=== PATIENT | female | born 1995 | race Caucasian/White ===

== ENCOUNTER 2019-10-25 20:34 | Emergency (ER) | payer MEDICAID ==
[~2019-10-25] VITALS: Ht 160 cm; Wt 47.3 kg
[2019-10-25] MEDS ORDERED: ONDANSETRON ODT 8 MG PO ONE (21:00)
[2019-10-25] MEDS ORDERED: ONDANSETRON ODT 4 MG ONE (21:00)
[2019-10-25] MEDS ORDERED: ONDANSETRON ODT 8 MG ONE (21:01)
[2019-10-25 21:36] LABS: MEAN CORPUSCULAR HEMOGLOBIN 31.2 pg (27.0-34.8); MEAN CORPUSCULAR VOLUME 94.5 fL (80-100); MEAN PLATELET VOLUME 9.2 fL (7.4-10.4); PLATELET COUNT 250 x10^3/uL (130-400); RED BLOOD COUNT 4.95 x10^6/uL (3.82-5.3); RED CELL DISTRIBUTION WIDTH 12.8 % (9.6-15.2)
[2019-10-25 21:49] LABS: ALBUMIN 3.8 g/dL (3.4-5.0); ANION GAP 5 mmol/L (5-15); CALCIUM 9.1 mg/dL (8.5-10.1); CHLORIDE 106 mmol/L (98-107)
[2019-10-25 21:54] LABS: ALANINE AMINOTRANSFERASE 23 U/L (12-78); ALKALINE PHOSPHATASE 112 U/L (45-117); BILIRUBIN,TOTAL 0.7 mg/dL (0.2-1.0); CREATININE 0.66 mg/dL (0.55-1.02); TOTAL PROTEIN 8.4 g/dL (6.4-8.2)
[2019-10-25] MEDS ORDERED: SODIUM CHLORIDE FLUSH 10ML SYR IVF ONE (22:00)
[2019-10-25 22:02] LABS: BASOPHILS # (AUTO) 0.01 x10^3/uL (0-0.1); BASOPHILS % (AUTO) 0 % (0-1); EOSINOPHILS % (AUTO) 0 % (1-7); LYMPHOCYTES # (AUTO) 0.72 x10^3/uL (1-3.4); LYMPHOCYTES % (AUTO) 4 % (22-44); MD SCAN; MONOCYTES # (AUTO) 0.23 x10^3/uL (0.2-0.8); MONOCYTES % (AUTO) 1 % (2-9); NEUTROPHILS # (AUTO) 18.08 x10^3/uL (1.8-6.8); NEUTROPHILS % (AUTO) 95 % (42-75)
--- NOTE | 2019-10-25 23:12 | NUR ---
pt to room from lobby
[2019-10-25] MEDS ORDERED: SODIUM CHLORIDE 0.9% 1,000ML IVBOLUS ONE (23:30)
--- NOTE | 2019-10-25 23:58 | NUR ---
FIRST CONTACT WITH PT. PT SITTING UP IN [facility], CUDDLED WITH SO. PT CO N/V/D СЕРГЕЙ 'Armond WHITTINGTON FROM [facility]' THIS AFTERNOON. IV ESTABLISHED, IVF HUNG. UA COLLECTED AND SENT TO LAB. URINE YELLOW/CLOUDY.
--- NOTE | 2019-10-26 | NUR ---
PT REPORTS IMPROVEMENT IN NAUSEA W MEDICATIONS.
[2019-10-26 00:04] VITALS: BP 90/64
[2019-10-26 00:19] LABS: CULTURE INDICATED? YES; MICROSCOPIC INDICATED
[2019-10-26] MEDS ORDERED: SODIUM CHLORIDE 0.9% 1,000ML IVBOLUS ONE (00:30)
--- NOTE | 2019-10-26 01:23 | NUR ---
PT REPORTS IMPROVEMENT IN NAUSEA. NO VOMITING NOTED WHILE IN ED. PT TOLERATING PO FLUIDS. IV DC'D. DC EDUCATION PROVIDED, PT DEMONSTRATES UNDERSTANDING. PT AMBULATED STEADILY TO DC WITH RN
== END 2019-10-26 01:28 | disposition home or self-care (01) ==
LOC: ED 23:50
DX: K52.9 Noninfective gastroenteritis and colitis, unspecified (principal); D72.829 Elevated white blood cell count, unspecified
CPT/HCPCS: 36415; 80053; 81001; 83690; 84703; 85025; 87086; 96360; 99283; J7030; Q0162